=== PATIENT | female | born 1995 ===

== ENCOUNTER 2018-06-21 20:12 | Emergency (ER) | payer OTHER ==
[2018-06-21 20:25] VITALS: BP 146/60
--- NOTE | 2018-06-21 20:27 | Emergency Department Report ---
ED Rash HPI - HPI Chief Complaint: Extremity Injury, Upper Stated Complaint: L HAND MIDDLE FINGER INFECTION Time Seen by Provider: 06/21/18 20:24 Duration: 5 Days Location: Upper Extremities Suspected Cause: Unknown Rash Symptoms: No Itching, No Facial Swelling, No Tongue/Oral Swelling, No Breathing Difficulties, No Choking Sensation, No Wheezing/Dyspnea, No Peeling, N o Blistering, No Fever, No Lightheaded, No Malaise, No Myalgias Severity: mild Other History: left finger infection p scratch about 1 week ago. between fingers, red, drainage. painful. no abscess. VSS. no fever. ED Review of Systems ROS: Stated complaint: L HAND MIDDLE FINGER INFECTION Other details as noted in HPI Comment: All other systems reviewed and negative Constitutional: denies: chills Eyes: denies: as per HPI ENT: denies: throat pain Respiratory: denies: orthopnea Cardiovascular: denies: dyspnea on exertion Endocrine: denies: intolerance to cold Gastrointestinal: denies: abdominal pain Genitourinary: denies: urgency Musculoskeletal: denies: back pain Skin: as per HPI, lesions Neurological: denies: headache Psychiatric: denies: anxiety ED Past Medical Hx - Past Medical History Previous Medical History?: Yes Hx Asthma: Yes - Surgical History Past Surgical History?: Yes Additional Surgical History: Left Femur, Pelvis - Family History Family history: no significant - Social History Smoking Status: Never Smoker Substance Use Type: None - Medications Home Medications: Home Medications Medication Instructions Recorded Confirmed Last Taken Type cephALEXin [Keflex] 500 mg PO Q12HR #20 cap 06/21/18 Unknown Rx Rash Exam - Exam General: Vital signs noted. No distress. Alert and acting appropriately. HEENT: No Periorbital Edema, No Conjuctival Injection, No Chemosis, No Perioral Edema, No Tongue Edema, No Uvular Edema, No Compromised Airway, No Drooling Lungs: Yes Good Air Exchange, No Wheezes, No Ronchi, No Stridor, No Cough, No Labored Respirations, No Retractions, No Use of Accessory Muscles, No Other Abnormal Lung Sounds Heart: Yes Regular, No Murmur Skin: Yes Weeping, Yes Tenderness, Yes Erythema, No Urticarial Rash, No Maculopapular Rash, No Morbilliform rash, No Bulla(e), No Excoriations, No Edema, No Encrustations Other: Positive: Abdomen Normal, Neurologic Normal, Musculoskeletal Normal ED Course Vital Signs 06/21/18 20:24 Temperature 98.6 F Pulse Rate 78 Respiratory 20 Rate Blood Pressure 146/60 O2 Sat by Pulse 99 Oximetry ED Medical Decision Making - Medical Decision Making simple skin infection non toxic afebrile full rom of hand tdap utd dc home with dc poc Vital Signs 06/21/18 20:24 Temperature 98.6 F Pulse Rate 78 Respiratory 20 Rate Blood Pressure 146/60 O2 Sat by Pulse 99 Oximetry Critical care attestation.: If time is entered above; I have spent that time in minutes in the direct care of this critically ill patient, excluding procedure time. ED Disposition Clinical Impression: Cellulitis Disposition: DC-01 TO HOME OR SELFCARE Is pt being admited?: No Does the pt Need Aspirin: No Condition: Stable Instructions: Cellulitis (ED) Additional Instructions: keep clean with soap and water allow to dry no ointments cover with guaze motrin or tylenol for pain med as ordered tonight until gone Referrals: [facility] [Outside] - 3-5 Days Time of Disposition: 20:31
== END 2018-06-21 20:56 | disposition home or self-care (01) ==
LOC: ED 20:12
DX: L03.012 Cellulitis of left finger (principal); J45.909 Unspecified asthma, uncomplicated
CPT/HCPCS: 99282

== ENCOUNTER 2018-06-23 04:12 | Emergency (ER) | payer SELFPAY ==
[2018-06-23 04:21] VITALS: BP 145/76
== END 2018-06-23 08:35 ==
LOC: ED 04:12
DX: T78.40XA Allergy, unspecified, initial encounter (principal); Z53.21 Procedure and treatment not carried out due to patient leaving prior to being seen by health care provider; X58.XXXA Exposure to other specified factors, initial encounter

== ENCOUNTER 2018-06-24 09:19 | Emergency (ER) | payer OTHER ==
[2018-06-24 09:38] VITALS: BP 130/78
[2018-06-24] MEDS ORDERED: PEPCID PO ONE (10:30)
[2018-06-24] MEDS ORDERED: DECADRON IM ONE (10:30)
[2018-06-24] MEDS ORDERED: BANOPHEN PO ONE (10:30)
--- NOTE | 2018-06-24 10:30 | Emergency Department Report ---
ED Rash HPI - HPI Chief Complaint: Skin Rash Stated Complaint: FACE SWELLING/RASH Time Seen by Provider: 06/24/18 10:29 Duration: 3 Days Location: Chest Suspected Cause: Medication Rash Symptoms: Yes Itching, Yes Facial Swelling, No Tongue/Oral Swelling, No Breathing Difficulties, No Choking Sensation, No Wheezing/Dyspnea, No Peeling, No Blistering, No Fever, No Lightheaded, No Malaise, No Myalgias Severity: mild Other History: Patient was seen here just 3 days ago for cellulitis of her finger. She was given Keflex. She then developed a rash on her anterior chest and face. The rash is consistent without a drug allergy. Patient has no known drug allergies until this period. ABCs intact. She is breathing without difficulty. No hypoxia. Lungs are clear without wheezing. ED Review of Systems ROS: Stated complaint: FACE SWELLING/RASH Other details as noted in HPI Comment: All other systems reviewed and negative Constitutional: denies: chills, fever Eyes: denies: eye pain ENT: denies: ear pain Respiratory: denies: cough Cardiovascular: denies: palpitations Endocrine: denies: intolerance to cold Genitourinary: denies: urgency Musculoskeletal: denies: back pain Skin: as per HPI, rash Neurological: denies: headache Hematological/Lymphatic: denies: as per HPI ED Past Medical Hx - Past Medical History Previous Medical History?: Yes Hx Asthma: Yes - Surgical History Past Surgical History?: Yes Additional Surgical History: Left Femur, Pelvis - Family History Family history: no significant - Social History Smoking Status: Never Smoker Substance Use Type: None - Medications Home Medications: Home Medications Medication Instructions Recorded Confirmed Last Taken Type Famotidine [Pepcid] 20 mg PO DAILY #5 tablet 06/24/18 Unknown Rx diphenhydrAMINE [Benadryl CAP] 25 mg PO Q6HR PRN #24 capsule 06/24/18 Unknown Rx predniSONE [Deltasone] 20 mg PO DAILY #5 tablet 06/24/18 Unknown Rx Rash Exam - Exam General: Vital signs noted. No distress. Alert and acting appropriately. HEENT: No Periorbital Edema, No Conjuctival Injection, No Chemosis, No Perioral Edema, No Tongue Edema, No Uvular Edema, No Compromised Airway, No Drooling Lungs: Yes Good Air Exchange, No Wheezes, No Ronchi, No Stridor, No Cough, No Labored Respirations, No Retractions, No Use of Accessory Muscles, No Other Abnormal Lung Sounds Heart: Yes Regular, No Murmur Skin: Yes Urticarial Rash, Yes Erythema, No Maculopapular Rash, No Morbilliform rash, No Bulla(e), No Excoriations, No Weeping, No Tenderness, No Edema, No Encrustations Other: Positive: Abdomen Normal, Neurologic Normal, Musculoskeletal Normal ED Course Vital Signs 06/24/18 09:24 Temperature 98.7 F Pulse Rate 79 Respiratory 18 Rate Blood Pressure 130/78 O2 Sat by Pulse 99 Oximetry ED Medical Decision Making - Medical Decision Making allergic drug reaction abc intact no wheezing medicated in ER dc home with dc plan of care Vital Signs (72 hours) 06/24/18 09:24 Temperature 98.7 F Pulse Rate 79 Respiratory 18 Rate Blood Pressure 130/78 O2 Sat by Pulse 99 Oximetry Critical care attestation.: If time is entered above; I have spent that time in minutes in the direct care of this critically ill patient, excluding procedure time. ED Disposition Clinical Impression: Allergic drug rash Disposition: DC-01 TO HOME OR SELFCARE Is pt being admited?: No Does the pt Need Aspirin: No Condition: Stable Instructions: Antibiotic Medication Allergy (ED) Additional Instructions: DIET TOLERATED MEDS ORDERED TODAY IN ER FOLLOW INSTRUCTIONS ON THE BOTTLE FOLLOW UP PCP WITHIN 48 HOURS TO ENSURE YOU ARE GETTING BETTER ACTIVITY TOLERATED MOTRIN OR TYLENOL FOR PAIN OR FEVER RETURN TO THE ER FOR WORSENING SYMPTOMS NOT RELIEVED BY YOUR MEDICATIONS. STOP HOLDEN REPORT IT A DRUG ALLERGY FROM NOW ON Referrals: [facility] [Outside] - 3-5 Days Time of Disposition: 10:43
== END 2018-06-24 10:59 | disposition home or self-care (01) ==
LOC: ED 09:19
DX: T50.905A Adverse effect of unspecified drugs, medicaments and biological substances, initial encounter (principal); J45.909 Unspecified asthma, uncomplicated; Y92.9 Unspecified place or not applicable
CPT/HCPCS: 96372; 99282; J1100; Q0163

== ENCOUNTER 2019-10-30 12:08 | Outpatient (CLI) | payer OTHER ==
[2019-10-30 12:54] VITALS: BP 130/78
[2019-10-30] MEDS ORDERED: LACTATED RINGERS 1,000 ML IV SCH (13:00)
[2019-10-30 13:21] LABS: Bacteria,Urine 1+ /HPF (Negative); Bilirubin,Urine NEG (Negative); Blood,Urine NEG (Negative); Color,Urine Yellow (Yellow); Mucus,Urine 2+ /HPF; Urobilinogen,Urine < 2.0 mg/dL (<2.0)
--- NOTE | 2019-10-30 15:41 | Vascular Lab Report ---
DUPLEX DOPPLER LOWER EXTREMITY VEINS, LEFT INDICATION: r/o left lower extermity DVT. TECHNIQUE: Duplex doppler imaging was performed through the veins of the left lower extremity using venous compr ession and other maneuvers. COMPARISON: No relevant prior imaging study available. FINDINGS: Left Common femoral vein: Negative. Left Superficial femoral vein: Negative. Left Popliteal vein: Negative. Left Calf veins: Negative. Additional findings: None.. IMPRESSION: 1. No sonographic evidence for DVT in the left lower extremity. Signer Name: Antonino Vigil MD Signed: 10/30/2019 3:37 PM Workstation Name: [id number]
--- NOTE | 2019-10-30 16:42 | Event Note ---
Date: 10/30/19 (No evidence of DVT) Reviewed Doppler study with pt and there was no evidence of DVT. Discussed wearing compression stockings and elevating legs when not standing. Also decreasing sodium in diet and staying hydrated. Pt to keep schedule appointment in the office. Also no vaginal bleeding noted when admitted to triage. Category 1 tracing, no ctxs noted. Stable for discharge home.
== END 2019-10-30 16:45 | disposition home or self-care (01) ==
LOC: APU 12:08 → TRG 12:08 → APU 12:10 → TRG 16:45
PROVIDERS: ATTEND Obstetrics & Gynecology
DX: O46.8X2 Other antepartum hemorrhage, second trimester (principal); R10.2 Pelvic and perineal pain; Z3A.29 29 weeks gestation of pregnancy
CPT/HCPCS: 59025; 81001